=== PATIENT | male | born 1985 | race Hispanic/Latino ===

== ENCOUNTER 2017-06-17 01:20 | Emergency (ER) | payer OTHER ==
[2017-06-17 01:20] VITALS: BMI 23.7
[2017-06-17 01:42] VITALS: BP 124/82; PULSE 80; RESP 17; TEMP 98; O2SAT 97
--- NOTE | 2017-06-17 01:59 | ED PDOC ---
Arrival/HPI - General Chief Complaint: Chest Pain Time Seen by Provider: 06/17/17 01:21 Historian: Patient - History of Present Illness Narrative History of Present Illness (Text): 06/17/17 01:55 A 32 year old male, with no significant past medical history, presents to the emergency department complaining of pleuritic left-side chest pain tonight. Patient reports pain worsens through breathing and movement. Also, patient mentions he experienced similar symptoms 1 weeks ago and symptoms returned tonight. Patient denies of any fever, chills, nausea, vomiting, diarrhea, abdominal pain, shortness of breath, or any other complaints. Time/Duration: 1 week, Other (symptom returned tonight) Symptom Onset: Sudden Symptom Course: Unchanged Activities at Onset: Rest, Light Past Medical History - Provider Review Nursing Documentation Reviewed: Yes - Infectious Disease Hx of Infectious Diseases: None - Tetanus Immunization Tetanus Immunization: Up to Date - Past Medical History Past Medical History: No Previous - Cardiac Hx Hypertension: No - Pulmonary Hx Tuberculosis: No - Neurological HX Cerebrovascular Accident: No Hx Seizures: No - Hematological/Oncological Hx Cancer: No - Genitourinary/Gynecological Hx Sexually Transmitted Diseases: No - Psychiatric Hx Depression: No Hx Emotional Abuse: No Hx Physical Abuse: No Hx Substance Use: Yes (last time 01/31/14) - Past Surgical History Past Surgical History: No Previous - Surgical History Hx Cardiac Catheterization: Yes (2008) - Anesthesia Hx Anesthesia: No Hx Anesthesia Reactions: No Hx Malignant Hyperthermia: No - Suicidal Assessment Feels Threatened In Home Enviroment: No Family/Social History - Physician Review Nursing Documentation Reviewed: Yes Family/Social History: No Known Family HX Smoking Status: Heavy Smoker > 10 Cigarettes Daily Hx Alcohol Use: Yes Frequency of alcohol use: Few days per week Hx Substance Use: Yes (last time 01/31/14) Substance used: cocaine Hx Substance Use Treatment: No Allergies/Home Meds Allergies/Adverse Reactions: Allergies No Known Allergies Allergy (Verified 06/17/17 01:27) Home Medications: Home Meds Medication Instructions Recorded Confirmed No Known Home Med 06/17/17 06/17/17 Review of Systems - Physician Review All systems were reviewed & negative as marked: Yes - Review of Systems Constitutional: absent: Fevers, Night Sweats Respiratory: absent: SOB Cardiovascular: Chest Pain (pleuritic left-side chest pain, also worsens with movement) Gastrointestinal: absent: Abdominal Pain, Diarrhea, Nausea, Vomiting Physical Exam Vital Signs Reviewed: Yes Vital Signs Temp Pulse Resp BP Pulse Ox 06/17/17 01:36 98.0 F 80 17 124/82 97 Temperature: Afebrile Blood Pressure: Normal Pulse: Regular Respiratory Rate: Normal Appearance: Positive for: Well-Appearing Pain Distress: None Mental Status: Positive for: Alert and Oriented X 3 - Systems Exam Head: Present: Atraumatic, Normocephalic Pupils: Present: PERRL Extroacular Muscles: Present: EOMI Conjunctiva: Present: Normal Mouth: Present: Moist Mucous Membranes Neck: Present: Normal Range of Motion Respiratory/Chest: Present: Other (left-side chest wall tenderness) Cardiovascular: Present: Regular Rate and Rhythm, Normal S1, S2. No: Murmurs Abdomen: Present: Normal Bowel Sounds. No: Tenderness, Distention, Peritoneal Signs Back: Present: Normal Inspection Upper Extremity: Present: Normal Inspection. No: Cyanosis, Edema Lower Extremity: Present: Normal Inspection. No: Edema Neurological: Present: GCS=15, CN II-XII Intact, Speech Normal Skin: Present: Warm, Dry, Normal Color. No: Rashes Psychiatric: Present: Alert, Oriented x 3, Normal Insight, Normal Concentration Medical Decision Making ED Course and Treatment: 06/17/17 02:05 Impression: 32 year old male with pleuritic left-side chest pain. Physical exam shows left-side chest wall tenderness. Plan: -- EKG -- Chest X-ray -- Toradol -- Labs -- Urinalysis -- Reassess and disposition Prior Visits: Notes and results from previous visits were reviewed. Patient was last seen in the emergency department on 10/13/2016 for a laceration to the right fourth finger. Patient was discharged home. Progress Notes: 06/17/17 01:28 EKG: Ordered, reviewed, and independently interpreted the EKG. Rate : 76 BPM Rhythm : NSR Interpretation : Possible Left atrial enlargement. Borderline ECG. Comparison : No previous EKG for comparison. 06/17/2017 02:00 Chest X-ray is negative, no acute disease. Re-evaluation Time: 02:51 Reassessment Condition: Re-examined, Improved - Lab Interpretations Lab Results: 06/17/17 02:00 06/17/17 02:00 Lab Results 06/17/17 02:05: Urine Color Yellow, Urine Appearance Clear, Urine pH 6.0, Ur Specific [place] <= 1.005, Urine Protein Negative, Urine Glucose (UA) Negative, Urine Ketones Negative, Urine Blood Negative, Urine Nitrate Negative, Urine Bilirubin Negative, Urine Urobilinogen 0.2, Ur Leukocyte Esterase Negative 06/17/17 02:00: Sodium 141, Potassium 3.8, Chloride 106, Carbon Dioxide 22, Anion Gap 17, BUN 10, Creatinine 0.9, Est GFR ( Amer) > 60, Est GFR (Non- Af Amer) > 60, Random Glucose 86, Calcium 8.8, Magnesium 2.1, Total Bilirubin 0.3, AST 36, ALT 39, Alkaline Phosphatase 65, Lactate Dehydrogenase 448, Total Creatine Kinase 397 H, CK-MB (CK-2) 1.2, CK-MB (CK-2) % Cancelled, Troponin I < 0.01, Total Protein 7.2, Albumin 4.6, Globulin 2.6, Albumin/Globulin Ratio 1.8 06/17/17 02:00: WBC 9.1, RBC 4.29, Hgb 13.8 L, Hct 40.6 L, MCV 94.6, MCH 32.2, MCHC 34.0, RDW 13.0, Plt Count 322, MPV 9.0, Gran % 36.0 L, Lymph % (Auto) 50.0 H, Arthur % (Auto) 8.1 H, Eos % (Auto) 5.6 H, Baso % (Auto) 0.3, Gran # 3.27, Lymph # 4.6 H, Arthur # 0.7 H, Eos # 0.5, Baso # 0.03 I have reviewed the lab results: Yes - RAD Interpretation Radiology Orders: 06/17/17 01:56 CHEST PORTABLE [RAD] Stat - Medication Orders Current Medication Orders: Discontinued Medications Ketorolac Tromethamine (Toradol) 30 mg IVP ONCE ONE Stop: 06/17/17 01:57 Last Admin: 06/17/17 02:05 Dose: 30 mg EMA Risk Score for UA/NSTEMI - EMA Risk Score Age > 64: NO 3 or more CAD Risk Factors: NO Known CAD (Stenosis greater than 50%): NO Aspirin use in past 7 days: NO Severe Angina: NO EKG ST changes greater than 0.5mm: NO Positive Cardiac Marker: NO EMA Score: 0 % risk at 14 days of: all cause mortality, new or recurrent MA, or severe recurrent ischemia requiring urgen revascularization: 5% - Scribe Statement The provider has reviewed the documentation as recorded by the Jeff Hemphill Provider Scribe Attestation: All medical record entries made by the Rosalindaibbritt were at my direction and personally dictated by me. I have reviewed the chart and agree that the record accurately reflects my personal performance of the history, physical exam, medical decision making, and the department course for this patient. I have also personally directed, reviewed, and agree with the discharge instructions and disposition. Disposition/Present on Arrival - Present on Arrival Any Indicators Present on Arrival: No History of DVT/PE: No History of Uncontrolled Diabetes: No Urinary Catheter: No History of Decub. Ulcer: No History Surgical Site Infection Following: None - Disposition Have Diagnosis and Disposition been Completed?: Yes Diagnosis: Chest pain, atypical Disposition: HOME/ ROUTINE Disposition Time: 02:51 Condition: GOOD Discharge Instructions (ExitCare): Chest Pain (ED) Forms: [facility] (Slovenian)
[2017-06-17 02:14] LABS: BASO # 0.03 K/mm3 (0.0-2.0); BASO % 0.3 % (0.0-3.0); EOS # 0.5 (0.0-0.7); EOS % 5.6 % (1.5-5.0); GRAN # 3.27 (1.4-6.5); HEMATOCRIT 40.6 % (42.0-52.0); LYMPH # 4.6 (1.2-3.4); MEAN CELL VOLUME 94.6 fl (80.0-105.0); MEAN CORPUSCULAR HEMOGLOBIN 32.2 pg (25.0-35.0); MONO # 0.7 (0.1-0.6); MONO % 8.1 % (1.0-6.0); WHITE BLOOD COUNT 9.1 10^3/ul (4.5-11.0)
[2017-06-17 02:24] LABS: ALB/GLOB RATIO 1.8 (1.1-1.8); ALKALINE PHOSPHATASE 65 U/L (38-133); ALT/SGPT 39 U/L (7-56); AST/SGOT 36 U/L (15-59); BILIRUBIN,TOTAL 0.3 mg/dL (0.2-1.3); BLOOD UREA NITROGEN 10 mg/dL (7-21); CALCIUM 8.8 mg/dL (8.4-10.5); CARBON DIOXIDE 22 mmol/L (21-33); CHLORIDE 106 mmol/L (98-107); GFR AFRICAN-AMERICAN > 60; GLUCOSE,RANDOM 86 mg/dL (70-110); MAGNESIUM 2.1 mg/dL (1.7-2.2); POTASSIUM 3.8 mmol/L (3.6-5.0); SODIUM 141 mmol/L (132-148); TOTAL PROTEIN 7.2 g/dL (5.8-8.3)
[2017-06-17 02:25] LABS: URINE BILIRUBIN NEGATIVE (NEGATIVE); URINE BLOOD NEGATIVE (NEGATIVE); URINE GLUCOSE (UA) NEGATIVE (NEGATIVE); URINE KETONE NEGATIVE (NEGATIVE); URINE LEUKOCYTE ESTERASE NEGATIVE Leu/uL (NEGATIVE); URINE PROTEIN NEGATIVE mg/dL (<30 mg/dL); URINE UROBILINOGEN 0.2 E.U./dL (<1 E.U./dL)
[2017-06-17 02:26] LABS: URINE APPEARANCE CLEAR (CLEAR); URINE COLOR YELLOW (YELLOW)
[2017-06-17 02:39] LABS: TROPONIN I < 0.01 ng/mL
--- NOTE | 2017-06-17 09:29 | RAD ---
HISTORY: cp COMPARISON: Comparison made with prior study dated 02/01/2014 FINDINGS: LUNGS: No active pulmonary disease. PLEURA: No significant pleural effusion identified, no pneumothorax apparent. CARDIOVASCULAR: Normal. OSSEOUS STRUCTURES: No significant abnormalities. VISUALIZED UPPER ABDOMEN: Normal. OTHER FINDINGS: None. IMPRESSION: No active disease.
--- NOTE | 2017-06-18 01:31 | CARD ---
APPROVED REPORT EKG Measurement Heart [id number] <Conclusion> Normal sinus rhythm Possible Left atrial enlargement Borderline ECG
== END 2017-06-17 02:56 | disposition home or self-care (01) ==
LOC: ED 01:20
DX: R07.89 Other chest pain (principal)
CPT/HCPCS: 71010; 80053; 81003; 82550; 82553; 83615; 83735; 84484; 85025; 93005; 96374; 99283; J1885